=== PATIENT | male | born 2000 | race Caucasian/White ===

== ENCOUNTER 2021-02-23 15:22 | Emergency (ER) | payer OTHER ==
[~2021-02-23 15:22] MED LIST: IBUPROFEN800 MG PO; NAPROSYN375 MG PO; NORCO 5-325 TA1 EACH PO; NORCO 7.5-3251 EACH PO; ROBAXIN500 MG PO
[2021-02-23 16:23] LABS: BASOPHIL 0.3 % (0-2); EOSINOPHIL 3.2 % (0-5); HCT 45.9 % (42.0-52.0); HGB 15.4 g/dl (13.2-18.0); LYMPHOCYTE 31.2 % (15-48); MCHC 33.6 g/dL (32.0-36.0); MCV 92.4 fL (78.0-100.0); MPV 9.7 fL (6.0-9.5); NEUTROPHIL 58.1 % (41-80); NRBC 0; PLT 205 K/uL (150-400); RBC 4.97 M/uL (4.70-6.00); RDW 12.6 % (11.5-14.0)
[2021-02-23 16:38] LABS: ALBUMIN 4.1 g/dL (3.4-5.0); BILIRUBIN - TOTAL 0.5 mg/dL (0.2-1.0); BUN/CREAT RATIO (CALC) 12.9 RATIO; CREATININE 0.93 mg/dL (0.67-1.17); GLOBULIN (CALCULATION) 3.6 g/dL; POTASSIUM 3.9 mmol/L (3.5-5.1); TOTAL PROTEIN 7.7 g/dL (6.4-8.2)
[2021-02-23 17:37] LABS: BILIRUBIN NEGATIVE (NEGATIVE); BLOOD NEGATIVE Ery/uL (NEGATIVE); CLARITY CLEAR (CLEAR); COLOR YELLOW (YELLOW); GLUCOSE (U) NORMAL (NORMAL); LEUKOCYTES NEGATIVE Leu/uL (NEGATIVE); NITRITE NEGATIVE (NEGATIVE); PROTEIN NEGATIVE (NEGATIVE); SPECIFIC GRAVITY 1.025 (1.001-1.030); UROBILINOGEN 0.2 mg/dL (0.2-1.0); pH 7.5 (5.0-9.0)
[2021-02-23 17:42] LABS: AMPHETAMINES NEGATIVE (NEGATIVE); BARBITURATES NEGATIVE (NEGATIVE); ECSTASY (MDMA) NEGATIVE (NEGATIVE); MARIJUANA (THC) POSITIVE (NEGATIVE); METHADONE NEGATIVE (NEGATIVE); OPIATES POSITIVE (NEGATIVE); OXYCODONE NEGATIVE (NEGATIVE)
== END 2021-02-23 18:09 | disposition home or self-care (01) ==
LOC: FER 15:22
PROVIDERS: Nurse Practitioner Family
DX: R07.89 Other chest pain (principal); M25.512 Pain in left shoulder; R06.02 Shortness of breath; Z88.6 Allergy status to analgesic agent
CPT/HCPCS: 36415; 71250; 80053; 80305; 81003; 85025; 85379; 93005; J1170; J2270; J2405; J7030

== ENCOUNTER 2022-03-03 16:52 | Emergency (ER) | payer OTHER | END 2022-03-03 22:27 | disposition home or self-care (01) | LOC: FER 16:52 | DX: S62.306A Unspecified fracture of fifth metacarpal bone, right hand, initial encounter for closed fracture (principal); Z28.310 Unvaccinated for COVID-19; Y00.XXXA Assault by blunt object, initial encounter; Y92.009 Unspecified place in unspecified non-institutional (private) residence as the place of occurrence of the external cause | CPT/HCPCS: 70450; 73130 ==